=== PATIENT | female | born 1935 | race Caucasian/White ===

== ENCOUNTER → 2017-01-31 | Outpatient (CLI) | payer MEDICARE | END | disposition home or self-care (01) | LOC: PCVCIMAG 13:47 | PROVIDERS: ATTEND Internal Medicine Cardiovascular Disease | DX: I48.91 Unspecified atrial fibrillation (principal); J44.9 Chronic obstructive pulmonary disease, unspecified; I10 Essential (primary) hypertension; E78.00 Pure hypercholesterolemia, unspecified; I25.10 Atherosclerotic heart disease of native coronary artery without angina pectoris; Z86.73 Personal history of transient ischemic attack (TIA), and cerebral infarction without residual deficits | CPT/HCPCS: 80061; 93005; 93306; G0463 ==

== ENCOUNTER → 2017-02-19 | Outpatient (CLI) | payer MEDICARE | END | disposition home or self-care (01) | LOC: PCVCIMAG 13:02 | PROVIDERS: ATTEND Internal Medicine Cardiovascular Disease | DX: I70.211 Atherosclerosis of native arteries of extremities with intermittent claudication, right leg (principal); I10 Essential (primary) hypertension; I25.10 Atherosclerotic heart disease of native coronary artery without angina pectoris; I48.91 Unspecified atrial fibrillation; E78.00 Pure hypercholesterolemia, unspecified; Z95.820 Peripheral vascular angioplasty status with implants and grafts | CPT/HCPCS: 93925; G0463 ==

== ENCOUNTER → 2017-08-27 | Outpatient (CLI) | payer MEDICARE ==
--- NOTE | 2017-08-27 15:18 | PCVCIMAG ---
EXAM: BILATERAL CAROTID DUPLEX INDICATION: Carotid Occlusive Disease. FINDINGS: Doppler Measurements (centimeters per second): RIGHT: Peak CCA-72, Peak ECA-104, Diastolic ICA-17, Peak ICA-78, ICA/CCA Ratio-1.1. LEFT: Peak CCA-66, Peak ECA-160, Diastolic ICA-13, Peak ICA-92, ICA/CCA Ratio-1.4. RIGHT CAROTID: The carotid bulb has mild plaque. The proximal internal carotid artery shows <40% stenosis. The common carotid artery shows no significant stenosis. The external carotid artery shows no significant stenosis. LEFT CAROTID: The carotid bulb has moderate plaque. The proximal internal carotid artery shows <40% stenosis. The common carotid artery shows no significant stenosis. The external carotid artery shows 50% stenosis. Antegrade flow in both vertebral arteries. IMPRESSION: <40% stenosis of the right internal carotid artery with mild plaque. <40% stenosis of the left internal carotid artery with moderate plaque. LOC:[place] [id number]
--- NOTE | 2017-08-27 15:31 | PCVCIMAG ---
EXAM: BILATERAL LOWER EXTREMITY ARTERIAL DUPLEX INDICATION: Peripheral Arterial Disease. Leg pain. FINDINGS: Right Leg: Satisfactory arterial waveforms in the common femoral and profunda femoral artery. Increased systolic velocity mid superficial femoral artery of 512 cm/s consistent with 90% restenosis within prior stent. Popliteal artery is patent. The anterior tibial and peroneal arteries are patent. Occlusion of the distal posterior tibial artery. Left Leg: Satisfactory arterial waveforms in the common femoral and profunda femoral artery. Occlusion throughout the [place] superficial femoral artery. Post surgical changes of femoral-popliteal artery bypass remains patent. Mid and lower popliteal artery is patent. The anterior tibial and peroneal arteries are patent. The mid/distal posterior tibial artery is occluded. IMPRESSION: 90% restenosis mid right superficial femoral artery within prior stent has increased in severity since prior study. Previous left femoral-popliteal artery bypass remains patent. Unchanged occlusion of the mid/distal posterior tibial arteries bilaterally. LOC:[id number]
== END | disposition home or self-care (01) ==
LOC: PCVCIMAG 13:45
PROVIDERS: ATTEND Nuclear Medicine Nuclear Cardiology
DX: I25.10 Atherosclerotic heart disease of native coronary artery without angina pectoris (principal); I10 Essential (primary) hypertension; I73.9 Peripheral vascular disease, unspecified; I77.9 Disorder of arteries and arterioles, unspecified; E78.5 Hyperlipidemia, unspecified; I65.23 Occlusion and stenosis of bilateral carotid arteries; M79.605 Pain in left leg; M79.604 Pain in right leg; F17.210 Nicotine dependence, cigarettes, uncomplicated; R94.31 Abnormal electrocardiogram [ECG] [EKG]; R00.1 Bradycardia, unspecified; Z79.899 Other long term (current) drug therapy
CPT/HCPCS: 80061; 93005; 93880; 93925; G0463

== ENCOUNTER → 2017-09-03 | Outpatient (CLI) | payer MEDICARE ==
[~2017-09-03] MED LIST: DIAZEPAM 10 MG TABLET. ONE; EPTIFIBATIDE BOLUS 2,000 MCG/ML 10ML VIAL. IV ONE; HEPARIN SODIUM 5,000 UNIT/ML VIAL for PCVC. ONE; HEPARIN for ARTERIAL LINE 1,500 ML ONE; IODIXANOL 270 MG/ML 100 ML VIAL. ONE; IOHEXOL 350 MG/ML 100 ML VIAL. ONE; IV NORMAL SALINE 1000ML BAG 1,000 ML ONE; LIDOCAINE 1% Multi-Dose 20 ML VIAL. ONE; MIDAZOLAM HCL/PF 2 MG/2 ML VIAL. ONE; VANCOMYCIN 1GM IVPB FOR OMNI 250 ML ONE; fentaNYL PF VIAL 100 MCG/2 ML VIAL ONE; hydrALAZINE 20 MG/ML VIAL. ONE
--- NOTE | 2017-09-03 17:51 | PCVCINTER ---
EXAM: 1. AORTOGRAM AND BILATERAL LOWER EXTREMITY RUNOFF ANGIOGRAM 2. BILATERAL RENAL ANGIOGRAPHY 3. RIGHT SUPERFICIAL FEMORAL ARTERY ATHERECTOMY. 4. SECONDARY THROMBECTOMY RIGHT SUPERFICIAL FEMORAL ARTERY. 5. DRUG COATED BALLOON ANGIOPLASTY RIGHT SUPERFICIAL FEMORAL ARTERY. 6. RIGHT COMMON ILIAC ARTERY STENT PLACEMENT. 7. RIGHT EXTERNAL ILIAC ARTERY STENT PLACEMENT. 8. LEFT COMMON ILIAC ARTERY STENT PLACEMENT. 9. LEFT COMMON ILIAC ARTERY ANGIOPLASTY. INDICATION: Peripheral arterial disease. Coronary artery disease. Right leg claudication. Hypertension. Renal atherosclerosis. PROCEDURE: Procedure and risks of angiography intervention is appropriate including limb loss stroke and were discussed with the patient's family and consent obtained. The patient's left groin was prepped abnormal sterile fashion. IV conscious sedation was used to procedure with appropriate monitoring for from 10:30 AM through 12:30 PM. Ultrasound was used to interrogate the left groin and showed the left common femoral artery to be patent. A permanent spot film was obtained. Under ultrasound guidance access into the left common femoral artery was obtained and a 5 Israeli sheath was placed. Through this a 5 Israeli flush catheter was placed into the abdominal aorta at the level of the renal arteries and AP aortogram was performed. Catheter was positioned at the aortic bifurcation and both oblique views of the pelvis were obtained. Catheter was positioned into the left external iliac artery and left leg runoff angiography was performed. Catheter was exchanged for a visceral catheter was placed into the right renal arteries and right renal angiograms obtained. Catheter was placed into the the left renal arteries and left renal angiograms were obtained. Catheter was advanced to the level of the right external iliac artery and right leg runoff angiography was obtained. Patient was given 4000 units of heparin. A 6 Israeli crossover sheath was placed via the left groin to the level of the right common femoral artery. Atherectomy of the right superficial femoral artery was performed with 2.0 mm [employer] laser atherectomy catheter in the standard fashion. Following atherectomy small areas of thrombus were observed and because of this secondary thrombectomy throughout the right superficial femoral artery was carried out with mechanical suction thrombectomy catheter in the standard fashion. Minimal debris was removed. Following this drug coated balloon angioplasty of the right superficial femoral artery was carried out with a 6 x 120, 6 x 120, and 6 x 40 Spectranetics Stellerex [employer] catheter. Stent placement across the areas of high-grade stenosis in the right external iliac was carried out with a 10 x 80 Smart control stent with subsequent dilatation to 7.0 mm. Stent placement across the areas of high-grade stenosis in the right common iliac artery was carried out with a 10 x 60 Smart control stent with subsequent dilatation to 8.0 mm. Stent placement across the areas of high-grade stenosis in the left common iliac artery was carried out with a 10 x 60 Smart control stent with subsequent dilatation to 8.0 mm. Angioplasty of the distal left external iliac artery was carried out with a 7 mm PowerFlex [employer] catheter. Follow-up angiogram was performed. Catheters and wires removed. Sheath was removed and hemostasis obtained using the FISH device. No immediate complications. FINDINGS: Aortogram: There is one right and one left renal artery. Moderate plaque infrarenal abdominal aorta which shows moderate tortuosity. Pelvis: Moderate stenosis involving the right and left common iliac arteries. High-grade stenosis involving the mid and proximal right external iliac artery. Moderate stenosis distal left external iliac artery. The right common femoral and profunda femoral arteries are patent. The left common femoral artery is patent. The left profunda femoral artery is occluded. Right renal artery: Minimal plaque proximal vessel does not cause significant stenosis. Left renal artery: Minimal plaque proximal vessel does not cause significant stenosis. Right leg: Moderate stenosis proximal superficial femoral artery within prior stent. High-grade stenosis mid to distal superficial femoral artery within prior stent and high-grade stenosis distal superficial femoral artery at the distal margin of a prior stent. Popliteal artery is patent. The posterior tibial artery is occluded. The anterior tibial and peroneal arteries show adequate patency. The dorsalis pedis is occluded. 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 Postsurgical changes of [id number] popliteal artery bypass graft maintaining good patency. Lower popliteal artery is patent. The anterior tibial artery is the dominant runoff vessel. This does show a 95% focal stenosis in its proximal to midportion. There is delayed refilling of the distal peroneal artery. The posterior tibial arteries occluded throughout. Right superficial femoral artery: Following procedure as above vessel shows good patency. Right common iliac artery: Following procedure as above vessel shows satisfactory patency. Right external iliac artery: Following procedure as above vessel shows satisfactory patency. Left common iliac artery: Following procedure as above vessel shows satisfactory patency. Left external iliac artery: Following procedure as above vessel shows satisfactory patency. IMPRESSION: Areas of high-grade stenosis in the right superficial femoral artery within prior stent were treated as above with good patency restored. Right and left common and external iliac artery stenoses were treated as above with good patency restored. LOC:[id number]
--- NOTE | 2017-09-03 18:03 | PCVCINTER ---
APPROVED REPORT Patient Details Patient Status: Room #: 3 The patient is a 82 year-old Female Event Personnel Reyes Bliss MD, Gianna Ca MD, Wai Rivas RN, Viri Abdi RT(R), Jenni Arthur MD Risk Factors Arterial HypertensionDysplipidemia (Type: 1), Cerebrovascular DiseasePeripheral Vascular Disease, Chronic Lung DiseaseHypercholesterolemiaPhysical Activity, Last Creatanine 1.3Tobacco History (Current/Recent(w/in 1 year)) Previous Procedures/Diagnoses Previous Femoral Procedure, Previous Vascular Surgery, CAD, Cerebrovascular disease, Chronic lung disease->COPD, Hypertension, Arrhythmias - Supraventricular tachycardias->Persistent AF Procedure Narrative The patient was brought electively to the Cardiac Catheterization Laboratory and was prepped and draped in a sterile manner. The left femoral was infiltrated with 1% Lidocaine subcutaneous anesthesia. The left femoral accessed via ultrasound guidance. A 6F sheath was inserted into the left femoral artery. Coronary angiography was performed using coronary diagnostic catheters. The left coronary system was accessed and visualized with a JL4 catheter. Left ventriculogram was performed in ROBBINS projection. Pre-demployment femoral angiogram was performed . Closure device was deployed with a 6 Fr Fish. Hemostasis was obtained with manual pressure following sheath removal without any complications. The patient tolerated the procedure well and there were no complications associated with the procedure. There was no hematoma. Hemodynamics The right atrial mean pressure is 17 mmHg. The right ventricular pressure is 126 mmHg. The pulmonary artery pressure is 126 mmHg with a mean of 17 mmHg. The mean pulmonary capillary wedge pressure is 17 mmHg. The aortic pressure is 143/49 mmHg with a mean of 85 mmHg. The left ventricular pressure is 126/10 mmHg with a mean of 17 mmHg. Conclusion #1 Left ventricle normal size and systolic function EF 60% #2 left main free of disease giving rise to LAD and circumflex mild calcification is noted #3 mild irregularities and a diffusely diseased LAD with proximal calcification no high-grade occlusive disease #4 circumflex OM system nondominant with mild irregularities #5 RCA dominant vessel with long eccentric mid vessel lesion of 40-50% with extensive calcification this may be an area of prior stent PDA RADHA well preserved Recommendations and plan continue aggressive risk factor modification no coronary intervention indicated.
== END | disposition home or self-care (01) ==
LOC: PCVCINTER 09:47
PROVIDERS: ATTEND Nuclear Medicine Nuclear Cardiology
DX: I70.213 Atherosclerosis of native arteries of extremities with intermittent claudication, bilateral legs (principal); I25.10 Atherosclerotic heart disease of native coronary artery without angina pectoris; I10 Essential (primary) hypertension; I70.1 Atherosclerosis of renal artery
CPT/HCPCS: 36252; 37186; 37220; 37221; 37223; 75716; 76937; 93458; 99152; 99153; C1725; C1751; C1757; C1760; C1769; C1876; C1885; C1894; C2623; J0360; J1327; J1644; J2250; J3010; J3370; J7030; Q9967

== ENCOUNTER → 2018-01-11 | Outpatient (CLI) | payer MEDICARE | END | disposition home or self-care (01) | LOC: PCVCIMAG 08:12 | DX: I73.9 Peripheral vascular disease, unspecified (principal); I25.10 Atherosclerotic heart disease of native coronary artery without angina pectoris; E78.5 Hyperlipidemia, unspecified; I10 Essential (primary) hypertension; E78.00 Pure hypercholesterolemia, unspecified; J44.9 Chronic obstructive pulmonary disease, unspecified; F17.210 Nicotine dependence, cigarettes, uncomplicated; Z79.899 Other long term (current) drug therapy; Z88.0 Allergy status to penicillin | CPT/HCPCS: 36415; 93925; 93978; G0463 ==

== ENCOUNTER → 2018-06-19 | Outpatient (CLI) | payer MEDICARE ==
--- NOTE | 2018-06-19 15:07 | PCVCIMAG ---
EXAM: BILATERAL LOWER EXTREMITY ARTERIAL DUPLEX INDICATION: Peripheral Arterial Disease. Leg pain. FINDINGS: Right Leg: Mild stenosis common femoral artery. Profunda femoral artery is patent. Velocity ratio 274 cm/s proximal superficial femoral artery at the proximal portion of prior stent consistent with 50% restenosis. Remainder of the superficial femoral artery is patent. Popliteal artery is patent. The anterior tibial and peroneal arteries are patent. Occlusion throughout the posterior tibial artery. Left Leg: Common femoral and profunda femoral arteries are patent. Occlusion throughout the [place] superficial femoral artery. Post surgical changes of femoral to popliteal artery bypass graft. Satisfactory flow throughout the graft. Increased systolic velocity of 387 cm/s at the distal anastomosis of the graft consistent with 80-90% stenosis has developed since the prior study. The posterior tibial artery is occluded. The anterior tibial and peroneal arteries are patent. IMPRESSION: Unchanged 50% restenosis proximal right superficial femoral artery within prior stent. Interval development of 80-90% stenosis at the distal anastomosis of the left femoral-popliteal artery bypass graft. Unchanged occlusion of the right and left posterior tibial arteries. LOC:[id number]
== END | disposition home or self-care (01) ==
LOC: PCVCIMAG 13:40
PROVIDERS: ATTEND Nuclear Medicine Nuclear Cardiology
DX: I73.9 Peripheral vascular disease, unspecified (principal); I77.9 Disorder of arteries and arterioles, unspecified; I25.10 Atherosclerotic heart disease of native coronary artery without angina pectoris; I48.91 Unspecified atrial fibrillation; I10 Essential (primary) hypertension; E78.00 Pure hypercholesterolemia, unspecified; J44.9 Chronic obstructive pulmonary disease, unspecified; I70.0 Atherosclerosis of aorta; F17.210 Nicotine dependence, cigarettes, uncomplicated
CPT/HCPCS: 80061; 93925; G0463

== ENCOUNTER → 2018-06-24 | Outpatient (CLI) | payer MEDICARE ==
[~2018-06-24] MED LIST changes: +ASPIRIN 325 MG TABLET ONE; +CLOPIDOGREL BISULFATE 75 MG TABLET ONE; +HEPARIN 1,000 UNIT/ML VIAL for PCVC ONE; -HEPARIN for ARTERIAL LINE 1,500 ML ONE; +HEPARIN for IV BOLUS 10,000 UNIT/10 ML VIAL. ONE; -IOHEXOL 350 MG/ML 100 ML VIAL. ONE; +IV NORMAL SALINE 500ML BAG 500 ML ONE; -LIDOCAINE 1% Multi-Dose 20 ML VIAL. ONE; +LIDOCAINE 1%/EPI 1:100,000 20 ML VIAL. ONE; -VANCOMYCIN 1GM IVPB FOR OMNI 250 ML ONE; -hydrALAZINE 20 MG/ML VIAL. ONE
--- NOTE | 2018-06-24 17:54 | PCVCINTER ---
EXAM: 1. AORTOGRAM AND BILATERAL LOWER EXTREMITY RUNOFF ANGIOGRAM 2. BILATERAL RENAL ANGIOGRAPHY 3. LEFT POPLITEAL ARTERY ATHERECTOMY AND DRUG-ELUTING STENT PLACEMENT. 4. LEFT ANTERIOR TIBIAL ARTERY ATHERECTOMY AND DRUG-ELUTING STENT PLACEMENT. 5. SECONDARY THROMBECTOMY LEFT ANTERIOR TIBIAL ARTERY. INDICATION: Peripheral arterial disease. Leg pain. Hypertension. Renal atherosclerosis. No prior catheter based angiographic study is available. A full diagnostic angiogram study is performed today and the decision to intervene is based on this diagnostic study. PROCEDURE: Procedure and risks of angiography intervention is appropriate including limb loss stroke and were discussed with the patient's family and consent obtained. The patient's right groin was prepped in the normal sterile fashion. IV conscious sedation was used throughout procedure with appropriate monitoring from 9:00 AM through 10:30 AM. Ultrasound was used to interrogate the right groin and showed the right common femoral artery to be patent. A permanent spot film was obtained. Under ultrasound guidance access into the right common femoral artery was obtained and a 5 Yemeni sheath was placed. Through this a 5 [place]i flush catheter was placed into the abdominal aorta at the level of the renal arteries and AP aortogram was performed. Catheter was positioned at the aortic bifurcation and both oblique views of the pelvis were obtained. Catheter was positioned into the right external iliac artery and right leg runoff angiography was performed. Catheter was exchanged for a visceral catheter was placed into the right renal arteries and right renal angiograms obtained. Catheter was placed into the the left renal arteries and left renal angiograms were obtained. Catheter was advanced to the level of the left external iliac artery and left leg runoff angiography was obtained. Patient was given 4000 units of heparin. A 6 Yemeni crossover sheath was placed via the right groin to the level of the left common femoral artery. Atherectomy of the left distal popliteal artery was performed with 0.9 mm Spectranetics laser atherectomy catheter in the standard fashion. Atherectomy of the left proximal anterior tibial artery was performed with 0.9 mm Spectranetics laser atherectomy catheter in the standard fashion. Following atherectomy small areas of thrombus were observed and because of this secondary thrombectomy throughout the left anterior tibial artery was carried out with mechanical suction thrombectomy catheter in the standard fashion. Minimal debris was removed. Stent placement across the areas of high-grade stenosis in the left proximal anterior tibial artery was carried out with a 2.5 x 30 EluNIR stent with subsequent dilatation to 2.5 mm. Stent placement across the areas of high-grade stenosis in the left lower popliteal artery was carried out with a 3.5 x 17 EluNIR stent with subsequent dilatation to 3.7 mm. Following this angioplasty of the left mid anterior tibial artery was carried out with a 2.5 x 20 Cordis sleek WINDOW GLAZIER catheter. Follow-up angiogram was performed. Catheters and wires removed. Sheath was removed and hemostasis obtained using the FISH device. No immediate complications. FINDINGS: Aortogram: There is one right and one left renal artery. Moderate plaque infrarenal abdominal aorta without significant stenosis. Pelvis: Previous stents in the right and left common and external iliac arteries are maintaining satisfactory patency. Both internal iliac arteries are patent. Moderate plaque in the mid right common femoral artery results in 50% stenosis. Left common femoral artery is patent. The right profunda femoral artery is patent. The left profunda femoral artery is occluded. Right renal artery: Minimal plaque proximal vessel does not cause significant stenosis. Left renal artery: Minimal plaque proximal vessel does not cause significant stenosis. Right leg: Previous stent throughout the superficial femoral artery. Mild 30% restenosis proximal margin of the stent. At the distal margin of the stent is 30% restenosis not felt to be flow-limiting. The popliteal artery is patent. The posterior tibial artery is occluded throughout its mid and distal portion. The dominant runoff vessel is the anterior tibial artery showing satisfactory patency until its junction with the dorsalis pedis where there is moderate stenosis. The peroneal artery is patent throughout although mildly decreased in size. Left leg: Previous stents throughout the superficial femoral artery and upper popliteal artery show chronic occlusion. Postsurgical changes of femoral to below-knee popliteal artery bypass graft. The proximal anastomosis is patent with good patency throughout the graft. The popliteal artery at the level of the distal anastomosis to its distal portion shows complete occlusion. Occlusion at the origin of the anterior tibial artery with moderately high-grade restenosis in the proximal anterior tibial artery. 99% focal stenosis due to the large plaque in the mid anterior tibial artery. Anterior tibial artery and runs off into a small dorsalis pedis. The posterior tibial arteries occluded throughout. The tibioperoneal trunk shows occlusion. There is refilling of the proximal peroneal artery which isn't continuous to provide collaterals into the foot. Left popliteal artery: Following procedure as above good patency from the level of the distal anastomosis throughout the remaining length of the popliteal artery has been restored. Left anterior tibial artery: Following procedure as above the proximal portion of the anterior tibial artery shows good patency restored. Area of high-grade stenosis in the mid [place] vessel responded well to angioplasty with good patency restored. IMPRESSION: Interval occlusion of the distal left popliteal artery beginning at the level of the distal anastomosis of the femoral-popliteal artery bypass graft and extending into the proximal anterior tibial artery was treated as above with good patency restored. 99% focal stenosis mid left anterior tibial artery is treated with angioplasty with good patency restored. Minimal restenosis proximal and distal right superficial femoral artery within prior stent is not flow-limiting. LOC:[id number]
== END | disposition home or self-care (01) ==
LOC: PCVCINTER 08:06
PROVIDERS: ATTEND Internal Medicine Cardiovascular Disease
DX: I70.293 Other atherosclerosis of native arteries of extremities, bilateral legs (principal); I70.1 Atherosclerosis of renal artery; I70.0 Atherosclerosis of aorta; I10 Essential (primary) hypertension; I48.91 Unspecified atrial fibrillation; J44.9 Chronic obstructive pulmonary disease, unspecified; I25.10 Atherosclerotic heart disease of native coronary artery without angina pectoris; M19.90 Unspecified osteoarthritis, unspecified site; Z90.710 Acquired absence of both cervix and uterus; Z98.890 Other specified postprocedural states; Z85.828 Personal history of other malignant neoplasm of skin; Z82.3 Family history of stroke; F17.210 Nicotine dependence, cigarettes, uncomplicated; Z88.0 Allergy status to penicillin; Z88.2 Allergy status to sulfonamides; Z88.5 Allergy status to narcotic agent; Z88.7 Allergy status to serum and vaccine; E78.00 Pure hypercholesterolemia, unspecified; Z86.010 Personal history of colon polyps
CPT/HCPCS: 36252; 37186; 37227; 37231; 75716; 76937; 99152; 99153; C1725; C1751; C1757; C1760; C1769; C1876; C1885; C1894; J1327; J1644; J2250; J3010; J3490; J7030; J7040; Q9966

== ENCOUNTER → 2018-09-25 | Outpatient (CLI) | payer MEDICARE ==
--- NOTE | 2018-09-25 09:08 | PCVCIMAG ---
EXAM: LEFT LOWER EXTREMITY ARTERIAL DUPLEX INDICATION: Peripheral Arterial Disease. Leg pain. FINDINGS: Left Leg: Common femoral and profunda femoral arteries are patent. Complete occlusion of the [place] superficial femoral artery. Postsurgical changes of femoral-popliteal artery bypass graft maintaining satisfactory patency. The mid and distal popliteal artery and proximal anterior tibial artery maintaining satisfactory patency throughout prior stents. Unchanged occlusion of the tibioperoneal trunk and posterior tibial artery. Anterior tibial and peroneal arteries are patent. IMPRESSION: Left femoral-artery bypass graft maintaining satisfactory patency. Previous stents mid and distal popliteal artery and proximal anterior tibial artery maintaining good patency. Unchanged occlusion left tibioperoneal trunk/posterior tibial artery. LOC:[id number]
== END | disposition home or self-care (01) ==
LOC: PCVCIMAG 08:09
PROVIDERS: ATTEND Nuclear Medicine Nuclear Cardiology
DX: I70.292 Other atherosclerosis of native arteries of extremities, left leg (principal); I70.92 Chronic total occlusion of artery of the extremities; I25.10 Atherosclerotic heart disease of native coronary artery without angina pectoris; I48.0 Paroxysmal atrial fibrillation; I10 Essential (primary) hypertension; E78.00 Pure hypercholesterolemia, unspecified; J44.9 Chronic obstructive pulmonary disease, unspecified; F17.210 Nicotine dependence, cigarettes, uncomplicated; Z88.5 Allergy status to narcotic agent; Z88.0 Allergy status to penicillin; Z88.2 Allergy status to sulfonamides; Z90.710 Acquired absence of both cervix and uterus; Z88.1 Allergy status to other antibiotic agents
CPT/HCPCS: 93926; G0463

== ENCOUNTER → 2019-04-08 | Outpatient (CLI) | payer MEDICARE ==
--- NOTE | 2019-04-08 09:22 | PCVCIMAG ---
EXAM: BILATERAL CAROTID DUPLEX INDICATION: Carotid Occlusive Disease. FINDINGS: Doppler Measurements (centimeters per second): RIGHT: Peak CCA-48, Peak ECA-70, Diastolic ICA-27, Peak ICA-69, ICA/CCA Ratio-1.4. LEFT: Peak CCA-52, Peak ECA-94, Diastolic ICA-19, Peak ICA-66, ICA/CCA Ratio-1.3. RIGHT CAROTID: The carotid bulb has moderate plaque. The proximal internal carotid artery shows <40% stenosis. The common carotid artery shows no significant stenosis. The external carotid artery shows no significant stenosis. LEFT CAROTID: The carotid bulb has moderate plaque. The proximal internal carotid artery shows <40% stenosis. The common carotid artery shows no significant stenosis. The external carotid artery shows no significant stenosis. Antegrade flow in both vertebral arteries. IMPRESSION: <40% stenosis of the right internal carotid artery with moderate plaque. <40% stenosis of the left internal carotid artery with moderate plaque. LOC:[place] [id number]
--- NOTE | 2019-04-08 10:31 | PCVCIMAG ---
EXAM: BILATERAL LOWER EXTREMITY ARTERIAL DUPLEX INDICATION: Peripheral Arterial Disease. Leg pain. FINDINGS: Right Leg: Common femoral and profunda femoral arteries are patent. Superficial femoral artery and popliteal artery are patent including prior stent. The anterior tibial and peroneal arteries are patent. Occlusion of the posterior tibial artery. Left Leg: Common femoral and profunda femoral arteries are patent. Occlusion throughout the [place] superficial femoral artery and upper popliteal artery. Previous left [id number] popliteal artery bypass graft maintaining good patency. Mid and lower popliteal artery are patent. Previous stent proximal anterior tibial artery is patent. Mild restenosis site of intervention midanterior tibial artery. Peroneal artery is patent. Posterior tibial artery is occluded. IMPRESSION: Occlusion right posterior tibial artery. Otherwise no flow limiting stenosis in the right lower extremity. Left femoral-popliteal artery bypass graft remains patent. Previous drug-eluting stent proximal left anterior tibial artery is patent. Mild restenosis mid left anterior tibial artery. Unchanged occlusion left posterior tibial artery. LOC:[place] [id number]
== END | disposition home or self-care (01) ==
LOC: PCVCIMAG 08:32
PROVIDERS: ATTEND Nuclear Medicine Nuclear Cardiology
DX: I65.23 Occlusion and stenosis of bilateral carotid arteries (principal); I73.9 Peripheral vascular disease, unspecified; I25.10 Atherosclerotic heart disease of native coronary artery without angina pectoris; E78.00 Pure hypercholesterolemia, unspecified; I48.0 Paroxysmal atrial fibrillation; I77.9 Disorder of arteries and arterioles, unspecified; I10 Essential (primary) hypertension; D68.59 Other primary thrombophilia; F17.210 Nicotine dependence, cigarettes, uncomplicated
CPT/HCPCS: 36415; 80061; 93005; 93880; 93925; G0463